=== PATIENT | male | born 1955 | race Caucasian/White ===

== ENCOUNTER 2021-03-29 23:20 | Emergency (ER) | payer SELFPAY ==
--- NOTE | 2021-03-30 00:31 | EDM.PDOC ---
ED HPI GENERAL MEDICAL PROBLEM - General Chief Complaint: ENT Problem Stated Complaint: SWELLING IN NECK AND JAW Time Seen by Provider: 03/29/21 23:34 Source of Information: Reports: Patient History Limitations: Reports: No Limitations - History of Present Illness INITIAL COMMENTS - FREE TEXT/NARRATIVE: Edu is a 65-year-old male presenting to the ED for evaluation of right-sided mandibular pain and swelling and right-sided maxillary pain causing a right- sided headache. Patient has had symptoms ongoing for about a month. Over the last week he has had significant worsening of symptoms with more frequent headache and significant jaw swelling. The patient removed a tick which he believes was a wood tick from his neck several weeks ago before the onset of symptoms. He does not have any redness or rash although he does have a gonzalez. He also has a history of poor dentition with multiple teeth eroded and exposing dentin and pulp. He has significant tenderness and swelling around teeth #31, 30, 29, and 28 which has significant gingival swelling and pain. He denies any fever or chills, difficulty with swallowing, change in vision, nausea or vomiting.. Treatments CARETAKER RESORT: Reports: Acetaminophen right side of jaw Pain Score (Numeric/FACES): 8 Headache Pain Score (Numeric/FACES): 5 - Related Data Allergies Allergy/AdvReac Type Severity Reaction Status Date / Time No Known Allergies Allergy Verified 03/30/21 00:00 Home Meds: Home Meds Amiodarone HCl [Pacerone] 200 mg PO DAILY 03/30/21 [History] Metoprolol Tartrate [Lopressor] 100 mg PO DAILY 03/30/21 [History] Rivaroxaban [Xarelto] 20 mg PO DAILY 03/30/21 [History] lisinopriL [Lisinopril] 5 mg PO DAILY 03/30/21 [History] Past Medical History HEENT History: Reports: Impaired Vision, Other (See Below) Other HEENT History: contacts Cardiovascular History: Reports: Afib, Hypertension Hematologic History: Reports: Anticoagulation Therapy - Infectious Disease History Infectious Disease History: Reports: Chicken Pox - Past Surgical History GI Surgical History: Reports: Appendectomy Social & Family History - Tobacco Use Tobacco Use Status *Q: Never Tobacco User - Caffeine Use Caffeine Use: Reports: Coffee - Recreational Drug Use Recreational Drug Use: No ED ROS ENT - Review of Systems Review Of Systems: See Below Constitutional: Reports: No Symptoms HEENT: Reports: Dental Pain, Other (Jaw swelling on the right) Respiratory: Reports: No Symptoms Cardiovascular: Reports: No Symptoms Endocrine: Reports: No Symptoms GI/Abdominal: Reports: No Symptoms : Reports: No Symptoms Musculoskeletal: Reports: No Symptoms Skin: Reports: No Symptoms Neurological: Reports: Headache (Intermittent) Psychiatric: Reports: No Symptoms Hematologic/Lymphatic: Reports: No Symptoms Immunologic: Reports: No Symptoms ED EXAM, ENT - Physical Exam Exam: See Below Exam Limited By: No Limitations General Appearance: Alert, Anxious, Mild Distress Eye Exam: Bilateral Eye: EOMI, PERRL Nose: Normal Inspection, Normal Mucousa Mouth/Throat: Dental Abcess (Very significant gingival swelling with abscess formation around teeth #28, 29, 30, and 31. Teeth #28, 29, and 30 are eroded to the base exposing dentin and pulp. There is significant erythema and even eschar on the gingiva consistent with dental abscess.), Dental Pain, Dental Tenderness, Other (Erosion of teeth also include #2, 3, 4, and 5 which are eroded to the base. They 2 are exposing dentin and pulp. There is no sign of abscess in this area. They are less tender than the mandibular teeth.) Head: Facial Swelling (Swelling over the right mandible), Facial Tenderness (Exquisitely tender area on the right mandible around the area of swelling. There is also considerable swelling and tenderness over the right maxillary sinus.) Neck: Normal Inspection, Supple, Non-Tender, Full Range of Motion, Lymphadenopathy (R) Respiratory/Chest: No Respiratory Distress, Lungs Clear, Normal Breath Sounds ED I&D PROCEDURES - I&D Site: Mandibular gingiva on the right Local anesthesia - Lidocaine (Xylocaine): 1% with EPI Local Anesthetic Volume: 3cc Area Incised With: 11 Blade Drainage: Purulent, Bloody, Moderate Amount Probed to Break Up Loculations: Yes Sterile Dressing: None Complications: No Course - Vital Signs Last Recorded V/S: Last Vital Signs Temp 36.5 C 03/30/21 00:04 Pulse 46 L 03/30/21 00:04 Resp 16 03/30/21 00:04 BP 176/66 H 03/30/21 00:04 Pulse Ox 98 03/30/21 00:04 - Re-Assessments/Exams Free Text/Narrative Re-Assessment/Exam: 03/30/21 00:32 Herbert has an alveolus dental abscess that was I indeed and drained. We will put the patient on clindamycin 300 mg 3 times daily for the next 10 days. I am also sending him home with a small amount of hydrocodone for pain control. He needs to follow-up with a dentist to have these teeth extracted, however, this will probably occur after he completes the course of clindamycin. At this time there is no evidence for compromise of the airway. He should follow-up with his primary care provider if not improving or return to the ED. All questions were answered he was suitable for discharge in satisfactory condition. Departure - Departure Time of Disposition: 00:33 Disposition: Home, Self-Care 01 Clinical Impression: Dental abscess, Dental caries extending into dentin, Acute necrotizing gingivitis - Discharge Information Instructions: Dental Abscess Referrals: PCP,Unknown [Primary Care Provider] - Care Plan Goals: You have a sizable dental abscess involving multiple teeth on your jaw. We will start you on clindamycin 300 mg (2 capsules) 3 times a day for 10 days. I have also included a prescription of hydrocodone which you may take for pain control. You may use Tylenol or ibuprofen as the mainstay of your pain control with the hydrocodone for more severe pain when needed. You should follow-up with a dentist as these teeth will likely need to be extracted. Sepsis Event Note (ED) - Evaluation Sepsis Screening Result: No Definite Risk - Focused Exam Vital Signs: Vital Signs Temp Pulse Resp BP Pulse Ox 03/30/21 00:04 36.5 C 46 L 16 176/66 H 98 03/29/21 23:38 36.5 C 46 L 16 176/66 H 98 - Problem List & Annotations (1) Acute necrotizing gingivitis SNOMED Code(s): 906516763 Code(s): A69.1 - OTHER VINCENT'S INFECTIONS Status: Acute Priority: Medium Current Visit: Yes (2) Dental abscess SNOMED Code(s): 941812209 Code(s): K04.7 - PERIAPICAL ABSCESS WITHOUT SINUS Status: Acute Priority: Medium Current Visit: Yes (3) Dental caries extending into dentin SNOMED Code(s): 407699371 Code(s): K02.62 - DENTAL CARIES ON SMOOTH SURFACE PENETRATING INTO DENTIN Status: Acute Priority: Medium Current Visit: Yes - Problem List Review Problem List Initiated/Reviewed/Updated: Yes
== END 2021-03-30 00:50 | disposition home or self-care (01) ==
LOC: JP.ED 23:20 → EDBD 23:20 → JP.ED 03-30 00:50
DX: K04.7 Periapical abscess without sinus (principal); K02.9 Dental caries, unspecified; A69.1 Other Vincent's infections; I48.91 Unspecified atrial fibrillation; I10 Essential (primary) hypertension; Z79.01 Long term (current) use of anticoagulants; Z79.899 Other long term (current) drug therapy
CPT/HCPCS: 41800; 99283